=== PATIENT | male | born 1965 | race American Indian/Alaskan Native ===

== ENCOUNTER 2023-05-28 10:25 | Day surgery (SDC) | payer OTHER ==
[2023-05-26 15:58] VITALS: BMI 25.5
[2023-05-28] MEDS ORDERED: Vancomycin 1 GM VIAL ONE (11:47)
[2023-05-28] MEDS ORDERED: Thrombin 5000 UNITS/5 ML VIAL ONE (11:47)
[2023-05-28 11:55] LABS: #Basophils 0.1 thou/uL (0.0-0.2); #Eosinphils 0.4 thou/uL (0.0-0.7); #Monocytes 0.7 thou/uL (0.11-0.59); #Neutrophils 3.8 thou/uL (1.40-6.50); %Basophils 1.3 % (0.0-1.0); %Eosinophils 5.3 % (0.0-10.0); %Lymphocytes 33.4 % (21.0-51.0); %Monocytes 9.6 % (0.0-10.0); %Neutrophils 50.1 % (42.0-75.0); Hematocrit 42.1 % (42.0-52.0); Hemoglobin 14.3 g/dL (14.0-18.0); Mean Corpuscular Hemoglobin 32.6 pg (27.0-31.0); Mean Corpuscular Volume 95.9 fl (78.0-98.0); Mean Platelet Volume 11.8 fL (7.4-10.4); Platelet Count 165 10x3/uL (130-400); Red Blood Cell (RBC) Count 4.39 mill/uL (4.70-6.10); White Blood Cell (WBC) Count 7.6 10x3/uL (4.8-10.8)
[2023-05-28] MEDS ORDERED: LevoFLOXacin 500 mg/D5W 100 ML BAG ONE (11:58)
[2023-05-28 12:09] LABS: INR-International Normal Ratio 0.9; Prothrombin Time 12.7 sec (12.0-14.7)
[2023-05-28 12:10] LABS: PTT 27.8 sec (22.9-36.1)
[2023-05-28] MEDS ORDERED: Clindamycin/D5W 900 mg/50 ml Premix Bag ONE (12:35)
[2023-05-28] MEDS ORDERED: fentaNYL 50 mcg/mL 1 mL Vial ONE ×4 (12:37→18:31)
[2023-05-28] MEDS ORDERED: Lidocaine 1% PF 5 ML VIAL ONE (13:05)
[2023-05-28] MEDS ORDERED: PROPOFOL 200 MG/20 ML VIAL ONE (13:05)
[2023-05-28] MEDS ORDERED: Rocuronium Bromide 10 MG/ML (10ML VIAL) ONE (13:05)
[2023-05-28] MEDS ORDERED: Dexamethasone 20 MG/5 ML VIAL ONE (13:05)
[2023-05-28] MEDS ORDERED: Glycopyrrolate 0.2 MG/ML 5 ML SYRINGE ONE (13:05)
[2023-05-28] MEDS ORDERED: Ondansetron PF 4 MG/2 ML Vial ONE (13:05)
[2023-05-28] MEDS ORDERED: NEOSTIGMINE 3 MG/3 ML SYR 3 MG/3 ML SYRINGE ONE (13:05)
[2023-05-28] MEDS ORDERED: HYDROmorphone 2 MG/ML VIAL SLOW IVP PRN (14:42)
[2023-05-28] MEDS ORDERED: Meperidine HCl/PF 25 MG/ML VIAL SLOW IVP PRN (14:42)
[2023-05-28] MEDS ORDERED: Promethazine HCl 25 MG/ML VIAL IM PRN (14:42)
[2023-05-28] MEDS ORDERED: Ondansetron HCl/PF 4 MG/2 ML Vial IVP PRN (14:42)
[2023-05-28] MEDS ORDERED: HYDROmorphone 0.5 MG/0.5 ML SYRINGE ONE ×3 (17:30→18:08)
[2023-05-28] MEDS ORDERED: Tamsulosin HCl 0.4 MG CAP ONE (17:46)
[2023-05-28] MEDS ORDERED: Dexmedetomidine 200 MCG/2 ML VIAL ONE ×2 (20:15→20:16)
== END 2023-05-28 20:05 | disposition home or self-care (01) ==
LOC: SDC 10:25 → EDSTATUS 16:04 → SDC 20:05
PROVIDERS: ATTEND Neurological Surgery
PROC: 0RG2070 Fusion of 2 or more Cervical Vertebral Joints with Autologous Tissue Substitute, Anterior Approach, Anterior Column, Open Approach (ICD-10-PCS; principal; 2023-05-28)
PROC: 0RG20A0 Fusion of 2 or more Cervical Vertebral Joints with Interbody Fusion Device, Anterior Approach, Anterior Column, Open Approach (ICD-10-PCS; principal; 2023-05-28)
PROC: 0RB30ZZ Excision of Cervical Vertebral Disc, Open Approach (ICD-10-PCS; principal; 2023-05-28)
DX: M50.121 Cervical disc disorder at C4-C5 level with radiculopathy (principal); M50.122 Cervical disc disorder at C5-C6 level with radiculopathy; M50.123 Cervical disc disorder at C6-C7 level with radiculopathy; G95.20 Unspecified cord compression; J45.909 Unspecified asthma, uncomplicated; I10 Essential (primary) hypertension; E78.00 Pure hypercholesterolemia, unspecified; M19.90 Unspecified osteoarthritis, unspecified site; Z87.891 Personal history of nicotine dependence; Z88.0 Allergy status to penicillin; Z79.899 Other long term (current) drug therapy; Z79.891 Long term (current) use of opiate analgesic
CPT/HCPCS: 85025; 85610; 85730; A4314; C1713; J1100; J1170; J1956; J2405; J2704; J3010; J3370; J3490